=== PATIENT | male | born 2000 | race African-American/Black ===

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

== ENCOUNTER 2020-12-21 09:27 | Emergency (ER) | payer MEDICAID ==
[~2020-12-21] VITALS: Ht 172.7 cm; Wt 59.0 kg
[2020-12-21] MEDS ORDERED: SODIUM CHLORIDE 0.9% 1,000 ML IV ONE (10:30)
[2020-12-21] MEDS ORDERED: HYDROmorphone HCL 2 MG/ML VL IV ONE (10:30)
[2020-12-21] MEDS ORDERED: SODIUM CHLORIDE 0.9% 500 ML IV ONE (10:30)
[2020-12-21] MEDS ORDERED: ONDANSETRON HCL 4 MG/2 ML VIAL IV ONE ×2 (10:30)
[2020-12-21 13:35] VITALS: BP 128/64
[2020-12-22] MEDS ORDERED: SUCCINYLCHOLINE CHLORIDE 20 MG/ML 10ML VIAL IV ONE (07:03)
[2020-12-22] MEDS ORDERED: ROCURONIUM 10MG/ML 10ML VIAL IV ONE (07:03)
[2020-12-22] MEDS ORDERED: LIDOCAINE 1% HCL (LOCAL ANESTH.) INJ 20ML MDV ONE (07:03)
== END 2020-12-21 13:32 | disposition home or self-care (01) ==
LOC: ER 09:27
DX: N44.00 Torsion of testis, unspecified (principal)
CPT/HCPCS: 54600; 76870; 96361; 96374; 96375; 99284; J1170; J2405; J7030; J2001